=== PATIENT | male | born 1945 | race Caucasian/White ===

== ENCOUNTER 2019-04-23 19:20 | Inpatient (IN) ==
[2019-04-23] MEDS ORDERED: 0.9 % Sodium Chloride 1,000 ML IVC ONE (19:52)
[2019-04-23 21:18] LABS: Basophils % 0.2 %; Hematocrit 40.1 % (37.5-50.1); Hemoglobin 13.8 g/dL (12.9-16.9); Immature Granulocytes % 0.4 % (0-4); Lymphocytes % 18.3 %; Mean Corpuscular HGB Conc 34.4 g/dL (31.6-35.5); Mean Corpuscular Hemoglobin 31.3 pg (28.0-33.3); Mean Corpuscular Volume 90.9 fL (83.0-100.0); Mean Platelet Volume 10.4 fL (9.4-12.4); Monocytes # 0.7 K/mcL (0.0-1.3); Monocytes % 12.1 %; Neutrophils # 3.9 K/mcL (1.6-8.9); Platelet Count 133 K/mcL (140-400); Red Blood Count 4.41 M/mcL (4.19-5.50); Red Cell Distribution Width 13.8 % (11.5-14.5); White Blood Count 5.6 K/mcL (4.3-11.1)
[2019-04-23 21:22] LABS: Bilirubin,Urine Moderate (Negative); Blood,Urine Negative (Negative); Glucose,Urine (UA) Normal (Normal); Ketones,Urine Trace mg/dL (Negative); Leukocyte Esterase,Urine Small (Negative); Nitrite,Urine Positive (Negative); Protein,Urine Negative (Neg-Trace); Specific Gravity,Urine 1.024 (1.010-1.025)
[2019-04-23 21:24] LABS: Hyaline Casts,Urine Few per lpf (None-Few); Squamous Epithelial Cell,Urine Many per lpf (None-Few)
[2019-04-23 21:26] LABS: Color,Urine Dark-Yellow (Yellow)
[2019-04-23 21:27] LABS: Clarity,Urine Hazy (Clear)
[2019-04-23 21:37] LABS: Amorphous Sediment,Urine Few per hpf (Few); Bacteria,Urine Few per hpf (None-Few); Mucus,Urine Few per lpf (Few)
[2019-04-23 21:41] LABS: Alanine Aminotransferase 39 Units/L (7-52); Albumin 3.8 g/dL (3.5-5.7); Albumin/Globulin Ratio 1.5 (1.1-2.2); Alkaline Phosphatase 67 Units/L (34-104); Aspartate Amino Transferase 79 Units/L (13-39); BUN/Creatinine Ratio 19 (6-26); Bilirubin,Total 0.6 mg/dL (0.3-1.0); Blood Urea Nitrogen 18 mg/dL (8-23); Calcium 9.6 mg/dL (8.6-10.3); Carbon Dioxide 31 mEq/L (23-29); Chloride 103 mEq/L (98-107); Creatine Kinase 2000 Units/L (30-223); Globulin 2.5 g/dL (2.4-3.5); Glucose 84 mg/dL (70-105); Magnesium 2.1 mg/dL (1.6-2.6); Osmolality,Calculated 291 (280-300); Phosphorous 2.4 mg/dL (2.7-4.5); Sodium 140 mEq/L (136-145); Total Protein 6.3 g/dL (6.4-8.9); Troponin I < 0.03 ng/mL (< 0.04); eGFR For African Americans > 60 (> 60); eGFR For Non-African Americans > 60 (> 60)
[2019-04-23] MEDS ORDERED: Potassium Chloride 40 MEQ, Lidocaine 1% 2 ML in 0.9 % Sodium Chloride 500 ML IVPB ONE (21:46)
[2019-04-23] MEDS ORDERED: cefTRIAXone 1,000 MG in Water for inj. (sterile) 10 ML IVP ONE (21:54)
[2019-04-23] MEDS ORDERED: Naloxone 0.4 MG/ML INJ IVP PRN (23:47)
[2019-04-24] MEDS: 0.9 % Sodium Chloride 1,000 ML IVC SCH ×4 (00:03→20:05)
[2019-04-24 05:24] LABS: Basophils % 0.2 %; Eosinophils % 0.2 %; Hematocrit 40.5 % (37.5-50.1); Hemoglobin 13.5 g/dL (12.9-16.9); Immature Granulocytes % 0.4 % (0-4); Lymphocytes % 17.5 %; Mean Corpuscular HGB Conc 33.3 g/dL (31.6-35.5); Mean Corpuscular Hemoglobin 31.3 pg (28.0-33.3); Monocytes # 0.6 K/mcL (0.0-1.3); Monocytes % 11.5 %; Neutrophils # 3.9 K/mcL (1.6-8.9); Platelet Count 101 K/mcL (140-400); Red Blood Count 4.31 M/mcL (4.19-5.50); Segmented Neutrophils % 70.2 %; White Blood Count 5.5 K/mcL (4.3-11.1)
[2019-04-24 05:42] LABS: BUN/Creatinine Ratio 18 (6-26); Blood Urea Nitrogen 15 mg/dL (8-23); Calcium 8.9 mg/dL (8.6-10.3); Carbon Dioxide 26 mEq/L (23-29); Chloride 109 mEq/L (98-107); Glucose 75 mg/dL (70-105); Osmolality,Calculated 296 (280-300); Potassium 3.4 mEq/L (3.5-5.1); Sodium 143 mEq/L (136-145); eGFR For African Americans > 60 (> 60); eGFR For Non-African Americans > 60 (> 60)
[2019-04-24] MEDS: Potassium Chloride Elixir 20 MEQ/15 ML UDC PO SCH ×2 (08:59→13:02)
[2019-04-24 12:24] LABS: Creatine Kinase 1303 Units/L (30-223)
[2019-04-24] MEDS: cefTRIAXone 1,000 MG in Water for inj. (sterile) 10 ML IVP SCH (14:38)
[2019-04-25] MEDS: 0.9 % Sodium Chloride 1,000 ML IVC SCH ×4 (03:23→20:30)
[2019-04-25 06:42] LABS: Basophils % 0.1 %; Hematocrit 41.4 % (37.5-50.1); Hemoglobin 14.3 g/dL (12.9-16.9); Immature Granulocytes % 0.3 % (0-4); Lymphocytes # 0.9 K/mcL (0.6-4.6); Lymphocytes % 11.9 %; Mean Corpuscular HGB Conc 34.5 g/dL (31.6-35.5); Mean Corpuscular Hemoglobin 31.8 pg (28.0-33.3); Mean Corpuscular Volume 92.2 fL (83.0-100.0); Mean Platelet Volume 10.1 fL (9.4-12.4); Monocytes # 0.8 K/mcL (0.0-1.3); Monocytes % 10.7 %; Neutrophils # 5.6 K/mcL (1.6-8.9); Platelet Count 118 K/mcL (140-400); Red Blood Count 4.49 M/mcL (4.19-5.50); Red Cell Distribution Width 13.5 % (11.5-14.5); White Blood Count 7.2 K/mcL (4.3-11.1)
[2019-04-25 07:04] LABS: BUN/Creatinine Ratio 13 (6-26); Blood Urea Nitrogen 8 mg/dL (8-23); Calcium 8.5 mg/dL (8.6-10.3); Carbon Dioxide 24 mEq/L (23-29); Chloride 103 mEq/L (98-107); Creatine Kinase 493 Units/L (30-223); Glucose 83 mg/dL (70-105); Magnesium 1.7 mg/dL (1.6-2.6); Osmolality,Calculated 287 (280-300); Phosphorous 1.9 mg/dL (2.7-4.5); Potassium 3.1 mEq/L (3.5-5.1); Sodium 140 mEq/L (136-145); eGFR For African Americans > 60 (> 60); eGFR For Non-African Americans > 60 (> 60)
[2019-04-25] MEDS: cefTRIAXone 1,000 MG in Water for inj. (sterile) 10 ML IVP SCH (09:01)
[2019-04-25] MEDS ORDERED: Perflutren Lipid Microsphere 1.3 ML in 0.9 % Sodium Chloride 8.7 ML IVP ONE (20:26)
[2019-04-26 06:15] LABS: Basophils % 0.2 %; Eosinophils % 0.2 %; Hematocrit 41.7 % (37.5-50.1); Hemoglobin 14.5 g/dL (12.9-16.9); Immature Granulocytes % 0.3 % (0-4); Lymphocytes # 0.8 K/mcL (0.6-4.6); Lymphocytes % 13.2 %; Mean Corpuscular HGB Conc 34.8 g/dL (31.6-35.5); Mean Corpuscular Hemoglobin 31.5 pg (28.0-33.3); Mean Corpuscular Volume 90.5 fL (83.0-100.0); Mean Platelet Volume 10.6 fL (9.4-12.4); Monocytes # 0.8 K/mcL (0.0-1.3); Monocytes % 12.8 %; Neutrophils # 4.5 K/mcL (1.6-8.9); Platelet Count 136 K/mcL (140-400); Red Blood Count 4.61 M/mcL (4.19-5.50); Red Cell Distribution Width 13.7 % (11.5-14.5); Segmented Neutrophils % 73.3 %; White Blood Count 6.2 K/mcL (4.3-11.1)
[2019-04-26 06:41] LABS: BUN/Creatinine Ratio 12 (6-26); Blood Urea Nitrogen 8 mg/dL (8-23); Calcium 8.8 mg/dL (8.6-10.3); Carbon Dioxide 23 mEq/L (23-29); Chloride 104 mEq/L (98-107); Glucose 81 mg/dL (70-105); Magnesium 2.1 mg/dL (1.6-2.6); Osmolality,Calculated 289 (280-300); Phosphorous 2.2 mg/dL (2.7-4.5); Sodium 141 mEq/L (136-145); eGFR For African Americans > 60 (> 60); eGFR For Non-African Americans > 60 (> 60)
[2019-04-26 08:00] LABS: Chol/HDL Ratio 3.7 (0-4.9); Cholesterol 103 mg/dL (< 200); HDL Cholesterol 28 mg/dL (40-59); LDL Cholesterol,Calculated 59 mg/dL (0-99); Triglycerides 80 mg/dL (< 150)
[2019-04-26] MEDS ORDERED: Potassium Phosphate 44 MEQ in 0.9 % Sodium Chloride 250 ML IVPB ONE (08:37)
[2019-04-26] MEDS: cefTRIAXone 1,000 MG in Water for inj. (sterile) 10 ML IVP SCH (08:39)
[2019-04-26] MEDS ORDERED: Aspirin 81 MG TAB.CHEW PO SCH (09:00)
[2019-04-26 11:09] VITALS: BP 130/69
== END 2019-04-26 14:05 | DRG 558 ==
LOC: EMEROOARM 19:20 → 3BNU 19:20
PROVIDERS: ADMIT Internal Medicine; ATTEND Internal Medicine